=== PATIENT | female | born 1955 | race Caucasian/White ===

== ENCOUNTER 2017-07-18 11:20 | Emergency (ER) | payer OTHER ==
--- NOTE | 2017-07-18 12:12 | ED ---
General Adult HPI - General Chief complaint: Abdominal Pain Stated complaint: constipation x 1 month Time Seen by Provider: 07/18/17 11:25 Source: patient, RN notes reviewed Mode of arrival: ambulatory Limitations: no limitations - History of Present Illness Initial comments: This is a 62-year-old female presents emergency apartment stating that she is constipated. Patient states she's been intermittently constipated since . Patient states she's tried MiraLAX and some other [id number] laxatives with some enemas and her belly is still distended and she feels as though she is not going regularly. Patient states she doesn't have any specific area of pain. Patient denies any fever chills. Patient denies any nausea vomiting. Patient denies any history of liver disease. patient states she only drinks maybe 1 glass of wine a week. Patient denies any pain medicines. Patient states she has had a colectomy in the past secondary to diverticulitis. Patient denies any chest pain or palpitations or difficulty breathing. Patient denies any dysuria hematuria urinary frequency.patient states she went to [facility] they took an x-ray said they didn't see anything and sent her here. - Related Data Home Medications Medication Instructions Recorded Confirmed Citalopram Hydrobromide [CeleXA] 40 mg PO HS 07/18/17 07/18/17 Magnesium Oxide [Mag-Ox] 250 mg PO DAILY 07/18/17 07/18/17 Metoprolol Tartrate [Lopressor] 100 mg PO BID 07/18/17 07/18/17 Triamterene/Hydrochlorothiazid 0.5 tab PO DAILY 07/18/17 07/18/17 [Triamterene-Hctz 75-50 mg Tab] Allergies Allergy/AdvReac Type Severity Reaction Status Date / Time DEJA Inhibitors Allergy Swelling Verified 07/18/17 11:57 losartan [From Cozaar] Allergy Swelling Verified 07/18/17 11:57 Review of Systems ROS Statement: Those systems with pertinent positive or pertinent negative responses have been documented in the HPI. ROS Other: All systems not noted in ROS Statement are negative. Past Medical History Past Medical History: Hypertension History of Any Multi-Drug Resistant Organisms: None Reported Past Surgical History: Appendectomy, Hysterectomy, Tonsillectomy Additional Past Surgical History / Comment(s): colon resection, breast abscess Past Psychological History: Anxiety, Depression Smoking Status: Current every day smoker Past Alcohol Use History: None Reported Past Drug Use History: None Reported General Exam - General Exam Comments Initial Comments: GENERAL: Patient is well-developed and well-nourished. Patient is nontoxic and well- hydrated and is in mild distress. ENT: Neck is soft and supple. No significant lymphadenopathy is noted. Oropharynx is clear. Moist mucous membranes. Neck has full range of motion without eliciting any pain. EYES: The sclera were anicteric and conjunctiva were pink and moist. Extraocular movements were intact and pupils were equal round and reactive to light. Eyelids were unremarkable. PULMONARY: Unlabored respirations. Good breath sounds bilaterally. No audible rales rhonchi or wheezing was noted. CARDIOVASCULAR: There is a regular rate and rhythm without any murmurs gallops or rubs. ABDOMEN: abdomen is distended and appears to have some fluid in it. Patient has no area of specific tenderness. SKIN: Skin is clear with no lesions or rashes and otherwise unremarkable. NEUROLOGIC: Patient is alert and oriented x3. Cranial nerves II through XII are grossly intact. Motor and sensory are also intact. Normal speech, volume and content. Symmetrical smile. MUSCULOSKELETAL: Normal extremities with adequate strength and full range of motion. No lower extremity swelling or edema. No calf tenderness. LYMPHATICS: No significant lymphadenopathy is noted PSYCHIATRIC: Normal psychiatric evaluation. Normal interpersonal interactions appears functionally intact in deals appropriately with others. No signs of depression. No signs of anxiety. Limitations: no limitations Course Vital Signs 07/18/17 07/18/17 11:29 14:21 Temperature 97.9 F 97.9 F Pulse Rate 57 L 56 L Respiratory 16 20 Rate Blood Pressure 127/76 125/58 O2 Sat by Pulse 99 100 Oximetry Medical Decision Making - Medical Decision Making CAT scan showed no acute abnormality. - Lab Data Result diagrams: 07/18/17 12:24 07/18/17 12:24 Lab Results 07/18/17 07/18/17 07/18/17 Range/Units 12:24 12:24 12:24 WBC 8.3 (3.8-10.6) k/uL RBC 4.78 (3.80-5.40) m/uL Hgb 14.5 (11.4-16.0) gm/dL Hct 45.2 (34.0-46.0) % MCV 94.5 (80.0-100.0) fL MCH 30.2 (25.0-35.0) pg MCHC 32.0 (31.0-37.0) g/dL RDW 14.4 (11.5-15.5) % Plt Count 120 L (150-450) k/uL Neutrophils % 48 % Lymphocytes % 45 % Monocytes % 4 % Eosinophils % 1 % Basophils % 1 % Neutrophils # 4.0 (1.3-7.7) k/uL Lymphocytes # 3.7 (1.0-4.8) k/uL Monocytes # 0.3 (0-1.0) k/uL Eosinophils # 0.0 (0-0.7) k/uL Basophils # 0.0 (0-0.2) k/uL Sodium 138 (137-145) mmol/L Potassium 4.8 (3.5-5.1) mmol/L Chloride 101 (98-107) mmol/L Carbon Dioxide 23 (22-30) mmol/L Anion Gap 14 mmol/L BUN 11 (7-17) mg/dL Creatinine 0.73 (0.52-1.04) mg/dL Est GFR (MDRD) Af Amer >60 (>60 ml/min/1.73 sqM) Est GFR (MDRD) Non-Af >60 (>60 ml/min/1.73 sqM) Glucose 86 (74-99) mg/dL Calcium 9.9 (8.4-10.2) mg/dL Total Bilirubin 0.8 (0.2-1.3) mg/dL AST 45 H (14-36) U/L ALT 39 (9-52) U/L Alkaline Phosphatase 72 (38-126) U/L Total Protein 7.5 (6.3-8.2) g/dL Albumin 4.8 (3.5-5.0) g/dL Amylase 85 (30-110) U/L Lipase 230 (23-300) U/L Urine Color Yellow Urine Appearance Clear (Clear) Urine pH 6.0 (5.0-8.0) Ur Specific Round O 1.009 (1.001-1.035) Urine Protein Negative (Negative) Urine Glucose (UA) Negative (Negative) Urine Ketones Negative (Negative) Urine Blood Trace H (Negative) Urine Nitrite Negative (Negative) Urine Bilirubin Negative (Negative) Urine Urobilinogen <2.0 (<2.0) mg/dL Ur Leukocyte Esterase Negative (Negative) Urine RBC 2 (0-5) /hpf Urine WBC <1 (0-5) /hpf Ur Squamous Epith Cells 1 (0-4) /hpf Disposition Clinical Impression: Abdominal pain Disposition: HOME SELF-CARE Condition: Good Instructions: Abdominal Pain (ED) Referrals: Alysia Matthews MD [Primary Care Provider] - 1-2 days Time of Disposition: 14:29
[2017-07-18] MEDS ORDERED: RX INFO: IV CONTRAST WAS GIVEN 1 EACH MISC MISCELLANE PRN (12:35)
--- NOTE | 2017-07-18 12:40 | XR ---
EXAMINATION TYPE: XR KUB DATE OF EXAM: 07/18/2017 12:34 PM CLINICAL HISTORY: Abdominal pain per order. Constipation for one month. TECHNIQUE: Two Upright KUB images of the abdomen are obtained. COMPARISON: None. FINDINGS: Scattered gas is seen in non-distended small bowel loops. A few small bowel loops are sligh tly more prominent in the lower abdomen. Gas is seen in nondistended stomach. Gas and fecal material is seen in non-distended colon. There is no visceromegaly, pneumoperitoneum, or abnormal calcificatio n appreciated. Slight underlying scoliotic curvature is present. Lung bases are clear. IMPRESSION: Overall nonobstructive bowel gas pattern.
[2017-07-18 12:48] LABS: Basophils % (A) 1 %; Eosinophils % (A) 1 %; HCT 45.2 % (34.0-46.0); HGB 14.5 gm/dL (11.4-16.0); Lymphocytes # (A) 3.7 k/uL (1.0-4.8); Lymphocytes % (A) 45 %; MCH 30.2 pg (25.0-35.0); MCV 94.5 fL (80.0-100.0); Mean Platelet Volume 8.1; Monocytes # (A) 0.3 k/uL (0-1.0); Monocytes % (A) 4 %; Neutrophils % (A) 48 %; Platelet Count 120 k/uL (150-450); RBC 4.78 m/uL (3.80-5.40); RDW 14.4 % (11.5-15.5); WBC 8.3 k/uL (3.8-10.6)
[2017-07-18 12:57] LABS: Amylase 85 U/L (30-110); Anion Gap 14 mmol/L; Calcium 9.9 mg/dL (8.4-10.2); Carbon Dioxide 23 mmol/L (22-30); Chloride 101 mmol/L (98-107); Glucose 86 mg/dL (74-99); Lipase 230 U/L (23-300); Sodium 138 mmol/L (137-145); Total Bilirubin 0.8 mg/dL (0.2-1.3)
[2017-07-18 12:59] LABS: Appearance,Urine Clear (Clear); Bilirubin,Urine Negative (Negative); Blood Urea Nitrogen 11 mg/dL (7-17); Blood,Urine Trace (Negative); Color,Urine Yellow; Glucose,Urine (UA) Negative (Negative); Ketones,Urine Negative (Negative); Leukocyte Esterase,Urine Negative (Negative); Nitrite,Urine Negative (Negative); Potassium 4.8 mmol/L (3.5-5.1); Protein,Urine Negative (Negative); RBC,Urine 2 /hpf (0-5); Specific Gravity,Urine 1.009 (1.001-1.035); Squamous Epithelial Cell,Urine 1 /hpf (0-4); Total Protein 7.5 g/dL (6.3-8.2); Urobilinogen,Urine <2.0 mg/dL (<2.0); WBC,Urine <1 /hpf (0-5)
[2017-07-18 13:00] LABS: ALT 39 U/L (9-52); AST 45 U/L (14-36); Albumin 4.8 g/dL (3.5-5.0); Alkaline Phosphatase 72 U/L (38-126)
--- NOTE | 2017-07-18 14:15 | CT ---
EXAMINATION TYPE: CT abdomen pelvis w con DATE OF EXAM: 07/18/2017 HISTORY: constipation/bloating/pressure pain CT DLP: 1463mGycm Automated Exposure Control for Dose Reduction was Utilized. CONTRAST: CT scan of the abdomen and pelvis is performed without oral but with IV Contrast, patient injected wi th 100 mL of Omnipaque 300. COMPARISON: None. FINDINGS: LUNG BASES: No significant abnormality is appreciated. LIVER/GB: There are few subcentimeter hypodense lesions scattered throughout the liver that are too s mall to further characterize per presumed benign. PANCREAS: No significant abnormality is seen. SPLEEN: Spleen is mildly enlarged at 13.9 cm long axis coronal image 34. ADRENALS: There is nonspecific 1.6 cm left adrenal nodule axial image 17. Malignant etiology cannot b e excluded. Follow-up nonemergent adrenal protocol CT/MRI advised. KIDNEYS: No significant abnormality is seen. BOWEL: There is low lying cecum at the right pelvis. Terminal ileum is identified on coronal image 39 felt within normal limits. There is no suspicious small or large bowel dilatation. Evaluation of bow el is suboptimal secondary to lack of enteric contrast. Redundant sigmoid colon is present. UTERUS/ADNEXA: Uterus is surgically absent or markedly atrophic in appearance. There are scattered pe lvic phleboliths. LYMPH NODES: No greater than 1cm abdominal or pelvic lymph nodes are appreciated. OSSEOUS STRUCTURES: There is moderate multilevel spurring in visualized thoracic spine. There is mild to moderate disc space narrowing and spurring with vacuum disc phenomenon L5-S1 level. There is subc hondral cystic change and narrowing at pubic symphysis. There is prominent facet arthropathy in the m id to lower lumbar spine. OTHER: No significant additional abnormality is seen. IMPRESSION: No bowel obstruction is seen. No significant acute finding is seen to account for patient 's clinical symptoms. Nonemergent follow-up for left adrenal lesion advised
[2017-07-18 14:58] VITALS: BP 142/84; PULSE 60; RESP 17; TEMP 99.1
== END 2017-07-18 14:57 | disposition home or self-care (01) ==
LOC: EC 11:20
DX: R10.9 Unspecified abdominal pain (principal); I10 Essential (primary) hypertension; F32.9 Major depressive disorder, single episode, unspecified; F41.9 Anxiety disorder, unspecified; F17.200 Nicotine dependence, unspecified, uncomplicated; Z79.899 Other long term (current) drug therapy; Z88.8 Allergy status to other drugs, medicaments and biological substances; Z90.49 Acquired absence of other specified parts of digestive tract
CPT/HCPCS: 36415; 80053; 82150; 83690; 85025; 81001; 74018; 74177; 99284; Q9967

== ENCOUNTER 2017-08-16 10:01 | Day surgery (SDC) | payer OTHER ==
[2017-08-11 15:10] VITALS: BMI 29.9
[2017-08-16 10:26] VITALS: TEMP 99.4
[2017-08-16 10:30] LABS: Glucose,Whole Blood 83 mg/dL (75-99)
[2017-08-16] MEDS: LACTATED RINGERS 1,000 ML IV SCH ×2 (10:42→11:52)
[2017-08-16] MEDS ORDERED: LIDOCAINE 1% 20 ML VIAL (10MG/ML) FOR IV START INTRADERMA ONE (10:43)
[2017-08-16] MEDS ORDERED: MIDAZOLAM 2 MG/2 ML VIAL IV ONE (10:52)
[2017-08-16] MEDS ORDERED: PROPOFOL 10 MG/ML 20 ML VIAL IV ONE (11:54)
[2017-08-16 12:28] VITALS: RESP 20
[2017-08-16 12:56] VITALS: BP 131/71; PULSE 58
--- NOTE | 2017-08-16 14:57 | P.PCN ---
Date of Procedure: 08/16/17 Procedure(s) Performed: Procedure: Colonoscopy and biopsy. Preoperative diagnosis: Abdominal bloating and change in bowel habits. Postoperative diagnosis: Diminutive polyp, distal sigmoid biopsied, otherwise, exam to the terminal ileum within normal limits. Preparation: HalfLytely prep. Sedation: Was provided by anesthesia. Brief clinical history: The patient is a 62-year-old female who is scheduled for this evaluation because of constipation and abdominal bloating which she has been experiencing for some time. She had segmental bowel resection more than 15 years ago. This would be her first colonoscopy since that time. Procedure: With the patient on her left lateral decubitus position and after informed consent and adequate sedation, the perianal area was inspected and it did not show any fissures or fistulas. There were no masses felt on digital rectal examination. The Olympus CFQ 160L video colonoscope was then inserted in the rectum in the usual fashion and advanced to the cecum. I then intubated the ileocecal valve and examined the terminal ileum. Terminal ileum and colon appeared healthy with no edema, erythema, friability, ulceration, exudation or spontaneous bleeding. There was a diminutive polyp in the distal sigmoid which was biopsied but there were no large polyps or cancer or any obvious diverticular disease or other pathology. I retroflexed the endoscope in the rectum before the endoscope was withdrawn. The patient tolerated the procedure well. Plan: The patient was reassured. Will await biopsy results. She will follow- up with you as planned and further plans based on her course and biopsy results. I recommended repeat colonoscopy in 5-10 years depending on the pathology results.
== END 2017-08-16 13:18 | disposition home or self-care (01) ==
LOC: ORWHC2ENDO 10:01
DX: D12.5 Benign neoplasm of sigmoid colon (principal); R14.0 Abdominal distension (gaseous); Z90.49 Acquired absence of other specified parts of digestive tract; J44.9 Chronic obstructive pulmonary disease, unspecified; K21.9 Gastro-esophageal reflux disease without esophagitis; I10 Essential (primary) hypertension; M19.90 Unspecified osteoarthritis, unspecified site; E16.2 Hypoglycemia, unspecified; F41.9 Anxiety disorder, unspecified; Z88.8 Allergy status to other drugs, medicaments and biological substances; Z91.048 Other nonmedicinal substance allergy status; F17.210 Nicotine dependence, cigarettes, uncomplicated; Z79.899 Other long term (current) drug therapy
CPT/HCPCS: 88305; 45380; J2250; J2704

== ENCOUNTER → 2017-08-19 | Outpatient (CLI) | payer OTHER ==
--- NOTE | 2017-08-19 13:56 | MR ---
EXAMINATION TYPE: MR abdomen wo/w con DATE OF EXAM: 08/19/[address] abdomen pelvis July 18, 2017 HISTORY: Left Adrenal Mass CONTRAST: Standard multiplanar, multisequence MRI departmental protocol utilizing 8 mL intravenous Gadavist maxwell olinium contrast. Exam was performed on the abdomen focusing on adrenal glands. FINDINGS: Adrenal glands: There is redemonstration of 1.7 x 1.2 cm left adrenal mass. There is diffuse signal d ropout on in and out of phase sequence imaging. Findings are consistent with benign lipid rich adenom a. Slight nodular thickening of both adrenal glands is present consistent with benign lipid rich hype rplasia as there is diffuse signal dropout. Other: Lung bases are clear. Gallbladder is somewhat contracted. A few tiny cysts are scattered throu ghout the visualized liver. Spleen is upper limits of normal in size. Pancreas is normal in size. The re are no concerning renal masses or hydronephrosis seen bilaterally. No suspicious bowel dilatation is present. No concerning abdominal ascites is identified. IMPRESSION: The 1.7 cm left adrenal mass has MRI imaging characteristics consistent with benign lipid rich adenoma.
== END | disposition home or self-care (01) ==
LOC: RADMRIMAIN 12:13
PROVIDERS: ATTEND Family Medicine
DX: E27.8 Other specified disorders of adrenal gland (principal)
CPT/HCPCS: 74183; A9581

== ENCOUNTER → 2017-09-01 | Outpatient (CLI) | payer OTHER ==
--- NOTE | 2017-09-07 10:01 | MM ---
Reason for exam: screening (asymptomatic). Last mammogram was performed 2 years and 5 months ago. Physical Findings: A clinical breast exam by your physician is recommended on an annual basis and results should be correlated with mammographic findings. MG Screening Mammo w CAD Bilateral CC and MLO view(s) were taken. Prior study comparison: April 04, 2015, mammogram, performed at [facility]. March 21, 2015, mammogram, performed at [facility]. The breast tissue is heterogeneously dense. This may lower the sensitivity of mammography. There is no discrete abnormality. ASSESSMENT: Negative, BI-RAD 1 RECOMMENDATION: Routine screening mammogram of both breasts in 1 year.
== END | disposition home or self-care (01) ==
LOC: RADMAMWWP 13:44
PROVIDERS: ATTEND Family Medicine
DX: Z12.31 Encounter for screening mammogram for malignant neoplasm of breast (principal)
CPT/HCPCS: 77067

== ENCOUNTER 2019-11-25 08:29 | Emergency (ER) | payer MEDICARE ==
[2019-11-25 08:36] VITALS: BP 164/96; PULSE 49; RESP 18; TEMP 98.6
[2019-11-25] MEDS ORDERED: DOXYCYCLINE 100 MG CAP PO STA (09:05)
--- NOTE | 2019-11-25 09:13 | ED ---
Skin/Abscess/FB HPI - General Chief complaint: Skin/Abscess/Foreign Body Stated complaint: ticks legs, feetn and groin Time Seen by Provider: 11/25/19 08:36 Source: patient, RN notes reviewed, old records reviewed Mode of arrival: ambulatory Limitations: language barrier - History of Present Illness Initial comments: Patient is a 64-year-old female who presents emergency department today for evaluation with chief complaint of concern for tick bites over her legs and groin area. Patient reports she was out working in the yard yesterday. She reports that she came home in the evening and noticed that she had 2 areas of concern for tick bite over the left foot and the right posterior knee. She reports that she picked is off with her fingers. Patient states that she minimally tender groin and noticed some areas of black spots and is concerned that those may be ticks. She denies any fevers or chills or target-like rashes. She denies any other history. - Related Data Home Medications Medication Instructions Recorded Confirmed Citalopram Hydrobromide [CeleXA] 40 mg PO HS 07/18/17 08/16/17 Magnesium Oxide [Mag-Ox] 250 mg PO DAILY 07/18/17 08/16/17 Metoprolol Tartrate [Lopressor] 100 mg PO BID 07/18/17 08/16/17 Triamterene/Hydrochlorothiazid 0.5 tab PO DAILY 07/18/17 08/16/17 [Triamterene-Hctz 75-50 mg Tab] Magnesium Tab 162 mg PO BID 08/11/17 08/16/17 Omeprazole [PriLOSEC] 20 mg PO AC-BRKFST 08/11/17 08/16/17 Oxybutynin Chloride [Ditropan] 5 mg PO HS 08/11/17 08/16/17 Allergies Allergy/AdvReac Type Severity Reaction Status Date / Time DEJA Inhibitors Allergy Swelling Verified 11/25/19 08:36 adhesive tape Allergy Itching Verified 11/25/19 08:36 losartan [From Cozaar] Allergy Swelling Verified 11/25/19 08:36 Review of Systems ROS Statement: Those systems with pertinent positive or pertinent negative responses have been documented in the HPI. ROS Other: All systems not noted in ROS Statement are negative. Past Medical History Past Medical History: COPD, GERD/Reflux, Hypertension, Osteoarthritis (OA) Additional Past Medical History / Comment(s): constipation, hypoglycemia, urinary leakage, hx diverticulitis History of Any Multi-Drug Resistant Organisms: None Reported Past Surgical History: Appendectomy, Bowel Resection, Hysterectomy, Tonsillecto my Additional Past Surgical History / Comment(s): colon resection, surgery on left breast for abscess x 2 Past Anesthesia/Blood Transfusion Reactions: Motion Sickness Past Psychological History: Depression Smoking Status: Current every day smoker Past Alcohol Use History: Occasional Past Drug Use History: Marijuana - Past Family History Father Family Medical History: Cancer General Exam - General Exam Comments Initial Comments: 64 -year-old female. No distress. Limitations: language barrier General appearance: alert, in no apparent distress Head exam: Present: atraumatic, normocephalic, normal inspection Eye exam: Present: normal appearance, PERRL, EOMI. Absent: scleral icterus, conjunctival injection, periorbital swelling ENT exam: Present: normal exam, mucous membranes moist Neck exam: Present: normal inspection. Absent: tenderness, meningismus, lymphadenopathy Respiratory exam: Present: normal lung sounds bilaterally. Absent: respiratory distress, wheezes, rales, rhonchi, stridor Cardiovascular Exam: Present: regular rate, normal rhythm, normal heart sounds. Absent: systolic murmur, diastolic murmur, rubs, gallop, clicks GI/Abdominal exam: Present: soft, normal bowel sounds. Absent: distended, tenderness, guarding, rebound, rigid Extremities exam: Present: normal inspection, full ROM, normal capillary refill, other (Patient has excoriation of the right posterior knee with a small puncture wound likely from concern for tick bite this removed. She has a similar appearance on the left foot.). Absent: tenderness, pedal edema, joint swelling, calf tenderness Back exam: Present: normal inspection Neurological exam: Present: alert, oriented X3, CN II-XII intact Psychiatric exam: Present: normal affect, normal mood Skin exam: Present: warm, dry, intact, normal color, other (Patient's area of concern for ticks and groin are actually clogged pores and blackheads within the groin.). Absent: rash Course Vital Signs 11/25/19 08:33 Temperature 98.6 F Pulse Rate 49 L Respiratory 18 Rate Blood Pressure 164/96 O2 Sat by Pulse 100 Oximetry Medical Decision Making - Medical Decision Making 64-year-old female presents emergency from today for concern for multiple tick bites. Patient reports she removed to him one from her left foot with right knee. Patient was also concerned that she may have some in her groin. On examination she has no ticks on her scan and thoroughly checked patient's hair. There is she was concerned or tick in her groin are actually clogged pores and blackheads and the groin. I discussed that if she is remove the 2 from her leg and foot to treat with a one-time dose of doxycycline. Given this in the emergency department. Advised following up with primary care doctor. Disposition Clinical Impression: Tick bite Disposition: HOME SELF-CARE Condition: Good Instructions (If sedation given, give patient instructions): Tick Bite (ED) Additional Instructions: Please use medication as discussed. Please follow up with family doctor if symptoms have not improved over the next two days. Please return to the emergency room if your symptoms increase or worsen or for any other concerns. Is patient prescribed a controlled substance at d/c from ED?: No Referrals: Delma Vargas MD [Primary Care Provider] - 1-2 days Time of Disposition: 09:12
== END 2019-11-25 09:24 | disposition home or self-care (01) ==
LOC: EC 08:29
DX: S90.862A Insect bite (nonvenomous), left foot, initial encounter (principal); S90.861A Insect bite (nonvenomous), right foot, initial encounter; S80.261A Insect bite (nonvenomous), right knee, initial encounter; F32.9 Major depressive disorder, single episode, unspecified; I10 Essential (primary) hypertension; K21.9 Gastro-esophageal reflux disease without esophagitis; N39.8 Other specified disorders of urinary system; Z79.899 Other long term (current) drug therapy; F17.200 Nicotine dependence, unspecified, uncomplicated; Z88.8 Allergy status to other drugs, medicaments and biological substances; Z91.048 Other nonmedicinal substance allergy status; W57.XXXA Bitten or stung by nonvenomous insect and other nonvenomous arthropods, initial encounter; Y93.89 Activity, other specified; Y92.096 Garden or yard of other non-institutional residence as the place of occurrence of the external cause
CPT/HCPCS: 99283

== ENCOUNTER → 2021-02-02 | Outpatient (CLI) | payer MEDICARE ==
--- NOTE | 2021-02-02 15:59 | XR ---
EXAMINATION TYPE: XR Hip Bilateral Complete DATE OF EXAM: 02/02/2021 COMPARISON: NONE HISTORY: Pain TECHNIQUE: 2 views of each hip is submitted FINDINGS: Right hip: Moderate to severe concentric narrowing of the joint space with hypertrophic spurring. No acute fracture or dislocation. Left hip: Mild to moderate concentric narrowing the joint space trophic spurring along the greater tr ochanter. No acute fracture or dislocation. IMPRESSION: Bilateral hip arthropathy.
--- NOTE | 2021-02-02 16:01 | XR ---
EXAM TYPE: LUMBAR SPINE X RAY SERIES COMPARISON: NONE HISTORY: Pain TECHNIQUE: 4 views are submitted. FINDINGS: Alignment is anatomic. The pedicles are intact. The transverse processes are intact. Diffuse osteop enia with hypertrophic and degenerative changes. Multilevel facet arthropathy. Vascular calcification s noted. IMPRESSION: 1. Multilevel moderate degenerative disc disease with severe facet arthropathy involving the lower bird mbar spine and suspected foraminal encroachment. 2. Diffuse osteopenia.
== END | disposition home or self-care (01) ==
LOC: RADXRMAIN 15:18
PROVIDERS: ATTEND Family Medicine
DX: M51.36 Other intervertebral disc degeneration, lumbar region (principal); M12.88 Other specific arthropathies, not elsewhere classified, other specified site; M12.9 Arthropathy, unspecified
CPT/HCPCS: 72110; 73521

== ENCOUNTER → 2021-06-16 | Outpatient (CLI) | payer MEDICARE ==
[2021-06-16 13:57] LABS: Basophils # (A) 0.1 k/uL (0-0.2); Basophils % (A) 0 %; Eosinophils # (A) 0.1 k/uL (0-0.7); Eosinophils % (A) 1 %; HCT 43.1 % (34.0-46.0); HGB 13.9 gm/dL (11.4-16.0); Lymphocytes # (A) 9.8 k/uL (1.0-4.8); Lymphocytes % (A) 57 %; MCH 30.8 pg (25.0-35.0); MCHC 32.3 g/dL (31.0-37.0); MCV 95.4 fL (80.0-100.0); Mean Platelet Volume 7.6; Monocytes # (A) 0.3 k/uL (0-1.0); Monocytes % (A) 2 %; Neutrophils # (A) 6.4 k/uL (1.3-7.7); Neutrophils % (A) 37 %; Platelet Count 198 k/uL (150-450); RBC 4.52 m/uL (3.80-5.40); RDW 13.6 % (11.5-15.5); WBC 17.1 k/uL (3.8-10.6)
[2021-06-16 14:25] LABS: Prothrombin Time 10.4 sec (9.0-12.0)
[2021-06-16 16:09] LABS: Poikilocytosis (M) Present
== END | disposition home or self-care (01) ==
LOC: LABPAT 13:12
PROVIDERS: ATTEND Orthopaedic Surgery
DX: Z01.812 Encounter for preprocedural laboratory examination (principal); M16.11 Unilateral primary osteoarthritis, right hip
CPT/HCPCS: 36415; 80051; 85025; 85610; 87070

== ENCOUNTER 2021-06-22 09:05 | Day surgery (SDC) | payer MEDICARE ==
[2021-06-17 11:06] VITALS: BMI 33.3
--- NOTE | 2021-06-21 11:29 | HP ---
HISTORY AND PHYSICAL DATE OF SURGERY: 06/22/2021 Estella Feliz is a 66-year-old patient seen with symptomatic right hip osteoarthritis. After treatment options were discussed with her, she elected to proceed with right total hip arthroplasty. Consent was obtained. Clearance was provided by Dr. Vargas. PAST MEDICAL HISTORY: Hypertension, leukemia, CLL. PAST SURGICAL HISTORY: Appendectomy, hysterectomy, tonsillectomy. DAILY MEDICATIONS: Omeprazole, [place], Celexa, metoprolol, oxybutynin. ALLERGIES: COZAAR. SOCIAL HISTORY: She denies tobacco use. PHYSICAL EVALUATION OF THE RIGHT HIP: There is diffuse tenderness. Limited range of motion. Severe pain. Positive hip impingement sign. Straight-leg raise negative. Distal neurovascular exam is intact. Radiographs of the right hip reveal severe osteoarthritic changes. IMPRESSION: 1. Right hip osteoarthritis. 2. Hypertension. 3. Leukemia. PLAN: Direct anterior right total hip arthroplasty. MMODL / IJN: [id number] /
[~2021-06-22 09:05] MED LIST: ACETAMINOPHEN TAB 500 MG TAB PO PRN; DEXAMETHASONE SOD PHOSPHATE 4 MG/ML 1 ML VIAL IV ONE; HYDROmorphone 0.5 MG/0.5 ML SYRINGE IVP PRN; MELOXICAM 7.5 MG TAB PO PRN; ONDANSETRON 4 MG/2 ML VIAL IVP ONE; ROPIVACAINE/EPI/CLONIDINE/KET 50 ML SYRINGE MISCELLANE PRN; TRANEXAMIC ACID 1,000 MG in SODIUM CHLORIDE 0.9% 100 ML IVPB PRN
[2021-06-22] MEDS: LACTATED RINGERS 1,000 ML IV SCH ×2 (09:53→13:55)
[2021-06-22] MEDS ORDERED: LIDOCAINE 1% (10MG/ML) FOR IV START INTRADERMA ONE (09:54)
[2021-06-22] MEDS ORDERED: GLYCOPYRROLATE 0.2 MG/ML 2 ML VIAL ONE (09:55)
[2021-06-22] MEDS ORDERED: HYDROmorphone (PF) 1 MG/ML ONE (09:55)
[2021-06-22] MEDS ORDERED: NEOSTIGMINE 1 MG/ML 10 ML VIAL ONE (09:55)
[2021-06-22] MEDS ORDERED: fentaNYL (PF) 50 MCG/ML 2 ML AMP ONE (09:55)
[2021-06-22] MEDS ORDERED: WATER FOR INJECTION, STERILE 10 ML VIAL IV ONE (09:55)
[2021-06-22] MEDS ORDERED: MIDAZOLAM 2 MG/2 ML VIAL ONE (09:55)
[2021-06-22] MEDS ORDERED: SUCCINYLCHOLINE CHLORIDE 100 MG/5 ML SYR IV ONE (09:55)
[2021-06-22] MEDS ORDERED: SODIUM CHLORIDE 0.9% 100 ML BAG ONE (09:55)
[2021-06-22] MEDS ORDERED: ePHEDrine 50 MG/ML 1 ML AMP ONE (09:55)
[2021-06-22] MEDS ORDERED: PROPOFOL 10 MG/ML 20 ML VIAL IV ONE (09:55)
[2021-06-22] MEDS ORDERED: ROCURONIUM 10 MG/ML (5 ML VIAL) IV ONE (09:55)
[2021-06-22] MEDS ORDERED: LIDOCAINE 1% INJ 10MG/ML (20 ML MDV) ONE (09:55)
[2021-06-22] MEDS ORDERED: TRANEXAMIC ACID 1,000 MG/10 ML VIAL ONE (09:55)
[2021-06-22] MEDS ORDERED: ONDANSETRON 4 MG/2 ML VIAL ONE (09:55)
[2021-06-22] MEDS ORDERED: ceFAZolin 1,000 MG in SODIUM CHLORIDE 0.9% 1,000 ML IRRIGATION ONE (10:32)
--- NOTE | 2021-06-22 11:42 | P.OP ---
Date of Procedure: 06/22/21 Preoperative Diagnosis: Right hip osteoarthritis Postoperative Diagnosis: Right hip osteoarthritis Procedure(s) Performed: Direct anterior right total hip arthroplasty Implants: 1. Depuy Corail size 11 KA with collar press-fit femoral stem 2. Depuy Alexander 52 mm press-fit acetabular shell 3. Depuy pinnacle neutral polyethylene acetabular liner 52 mm OD 36 mm ID 4. Biolox delta ceramic femoral head +5 36 mm Anesthesia: PASHAA, local Surgeon: Delio Remy Toys Inspector #1: Oscar Hughes Estimated Blood Loss (ml): 185 Pathology: other (Femoral head) Condition: stable Disposition: PACU Indications for Procedure: 66-year-old patient seen with symptomatic right hip osteoarthritis. After treatment options were discussed, she elected to proceed with direct anterior right total hip arthroplasty. Operative Findings: See description of procedure Description of Procedure: The patient was taken to the operative suite. Patient underwent a general anesthetic by the department of anesthesia. Patient was then transferred to the [facility] table. Patient was given preoperative IV antibiotics and TXA. Both lower extremities were placed in standard leg spars. The hip was then prepped and draped in the normal sterile orthopedic fashion. A standard anterior incision was made beginning 3 cm lateral and 1 cm distal to the ASIS extending 10 cm. Dissection was then carried down through the subcutaneous soft tissues down to the fascia overlying the tensor fascia jean. An incision was now made through the fascia. Careful dissection was taken down exposing the tensor fascia jean muscle. A Cobra retractor was now placed along the medial femoral neck and a second one along the lateral femoral neck. The venous circumflex vessels were now identified, cauterized and clipped. We identified the anterior hip capsule. An incision was made through the hip capsule along the lateral border. I performed a partial anterior capsulectomy. Retractors were now placed around the femoral neck itself. A femoral neck cut was now made with a sagittal saw. It was completed with an osteotome at the lateral neck area. The femoral head was now removed without difficulty. The extremity was now rotated to 60 of external rotation. It was locked in position. Residual labrum was now debrided out. Serial reaming was performed of the acetabulum while Yung ellis holding an anterior retractor for exposure. Once we reached the appropriate size and a trial was position and fit nicely. The appropriate size was now chosen opened and made available. It was introduced into the acetabulum without difficulty. The C-arm/fluoroscopy was now brought into the operative field. We made sure we had a true AP pelvic view. We now under direct C-arm/fluoroscopy introduced into the acetabular component with appropriate version and inclination. I held the cup in appropriate position well Yung CUEVA used a mallet to seat the acetabular component. I noted the component now to be well seated and stable. Acetabular cup introduce her was removed. The C-arm was pulled back. An appropriate liner was introduced and clicked into position. It was felt to be stable. At this point retractors were removed. The extremity was now placed into 140 external rotation with no traction. The leg was now dropped to the ground and adducted. Appropriate retractors were now positioned along the proximal femur. We also placed our femoral look into position. Additional capsular releasing was performed to gain access to the proximal femur. We now used a box osteotome. A canal finder was now utilized. Serial broaching was now performed with the assistance of Yung CUEVA tapping the broaches down with a mallet while held the broach in appropriate rotation and position. This was done until we reached the appropriate size with good overall rotational stability. Appropriate calcar planing was performed. A trial head/neck was placed into position. The hip was now reduced. The C- arm/fluoroscopy was brought back into the operative field. I obtained an AP pelvis demonstrating adequate leg length alignment and adequate positioning and sizing of the trial components. The C-arm/fluoroscopy was pulled back. Retractors were repositioned and the hip was dislocated. The leg was again taken down to the ground and adducted. Appropriate retractors were repositioned as well as the femoral hook. All trial components were removed. The femoral implant was opened along with the femoral head. The femoral implant was introduced on the appropriate handle into our pre-broached area. I held the component position well Yung CUEVA used a mallet to seat the femoral component. The femoral component was now noted to be well seated and stable.. The femoral head was introduced with good positioning and fixation noted. Retractors were now removed. The hip was now reduced. There appeared be good positioning of the hip confirmed on intraoperative fluoroscopy. Spot films were obtained to document this. A second gram of TXA was given. The deep and superficial soft tissues were infiltrated with local analgesic. Bipolar cautery had been utilized intermittently through the procedure for hemostasis. The wound was irrigated copiously with pulse lavage mechanical irrigation. The fascia was repaired with Vicryl suture. The subcutaneous soft tissues were repaired in layers with Vicryl suture. The skin was approximated with pernio/Dermabond. Sterile dressings were applied. Patient was then awakened, transferred to a bed and taken to recovery in stable condition. Yung CUEVA assisted with the complex procedure.
[2021-06-22] MEDS ORDERED: HYDROmorphone 1 MG/ML 1 ML SYRINGE IVP PRN (11:43)
[2021-06-22] MEDS ORDERED: HYDROmorphone 0.2 MG/1 ML SYRINGE IVP PRN (11:43)
[2021-06-22] MEDS ORDERED: HYDROmorphone 0.5 MG/0.5 ML SYRINGE IVP PRN (11:43)
[2021-06-22] MEDS ORDERED: HYDROcodone/APAP 7.5-325MG 1 EACH TAB PO PRN (11:43)
[2021-06-22] MEDS ORDERED: ONDANSETRON 4 MG/2 ML VIAL IVP PRN (11:43)
[2021-06-22] MEDS ORDERED: NALOXONE 0.4 MG/ML 1 ML VIAL IV PRN (11:43)
[2021-06-22] MEDS ORDERED: HYDROcodone/APAP 5-325MG 1 EACH TAB PO PRN (11:43)
[2021-06-22] MEDS ORDERED: LACTATED RINGERS 1,000 ML IV ONE (11:43)
--- NOTE | 2021-06-22 11:59 | FL ---
Fluoroscopy HISTORY: Hip replacement 16 seconds fluoroscopy time supplied to the referring clinician. 3 intraoperative C-arm images docum ent the procedure. See dictated report from orthopedic surgery.
[2021-06-22 12:17] VITALS: TEMP 97
[2021-06-22 12:27] VITALS: RESP 16
[2021-06-22] MEDS ORDERED: HYDROcodone/APAP 5-325MG 1 EACH TAB PO ONE (14:15)
[2021-06-22 16:09] VITALS: BP 111/74; PULSE 78
== END 2021-06-22 16:28 | disposition home or self-care (01) ==
LOC: OR 09:05
PROVIDERS: ATTEND Orthopaedic Surgery
DX: M16.11 Unilateral primary osteoarthritis, right hip (principal); I10 Essential (primary) hypertension; C91.10 Chronic lymphocytic leukemia of B-cell type not having achieved remission; Z20.822 Contact with and (suspected) exposure to COVID-19
CPT/HCPCS: 27130; 97110; 97161; 86900; 86901; 86850; 88300; 87635; 73501; C1776; J1100; J0690 ×2; J2405

== ENCOUNTER → 2021-09-04 | Outpatient (CLI) | payer MEDICARE | END | disposition home or self-care (01) | LOC: LABPAT 11:08 | PROVIDERS: ATTEND Orthopaedic Surgery | DX: Z53.9 Procedure and treatment not carried out, unspecified reason (principal) ==

== ENCOUNTER 2021-09-14 06:32 | Day surgery (SDC) | payer MEDICARE ==
[2021-09-04 15:48] VITALS: BMI 31.6
[2021-09-07 07:02] LABS: Anion Gap 13.2 mmol/L (10.00-18.00); Carbon Dioxide 23.8 mmol/L (20.0-27.5); HCT 42.4 % (37.2-46.3); INR 0.93 (0.90-1.11); MCHC 30.7 g/dL (32.0-37.0); MCV 91.2 fL (80.0-97.0); Mean Platelet Volume 10.6 fL (9.5-12.2); NRBC Per 100 WBC 0 /100 WBCS (0.0-0.0); Neutrophils # (M) 2.24 X 10*3/uL (2.00-8.90); Platelet Count 201 X 10*3/uL (140-440); Potassium 4.3 mmol/L (3.5-5.5); Prothrombin Time 10.5 sec (9.9-11.9); RBC 4.65 X 10*6/uL (4.10-5.20); RDW 13.8 % (11.5-14.5); Smudge Cells PRESENT; WBC 13.15 X 10*3/uL (4.50-10.00)
--- NOTE | 2021-09-13 12:46 | HP ---
HISTORY AND PHYSICAL DATE OF SURGERY: 09/14/2021 Estella Feliz is a 66-year-old patient seen with symptomatic left hip osteoarthritis. Options for treatment were discussed with her. She elected to proceed with direct anterior left total hip arthroplasty. Consent was obtained. PAST MEDICAL HISTORY: Hypertension. PAST SURGICAL HISTORY: Tonsillectomy, hysterectomy, appendectomy. DAILY MEDICATIONS: Omeprazole, metoprolol, ibuprofen. ALLERGIES: DEJA INHIBITORS AND COZAAR. SOCIAL HISTORY: She denies tobacco use. PHYSICAL EVALUATION OF THE LEFT HIP: She has limited range of motion with severe pain. Positive hip impingement sign. Straight-leg raise is negative. Distal neurovascular exam is intact. Radiographs of the left hip reveal severe osteoarthritic changes. IMPRESSION: 1. Left hip osteoarthritis. 2. Hypertension. 3. Gastroesophageal reflux disease. PLAN: Direct anterior left total hip arthroplasty. MMODL / IJN: [id number] /
[~2021-09-14 06:32] MED LIST changes: -HYDROmorphone 0.5 MG/0.5 ML SYRINGE IVP PRN; +LACTATED RINGERS 1,000 ML IV SCH; +MIDAZOLAM 2 MG/2 ML VIAL IV PRN; -ROPIVACAINE/EPI/CLONIDINE/KET 50 ML SYRINGE MISCELLANE PRN; +SCOPOLAMINE 1.5MG/72HR PATCH TRANSDERM ONE; -TRANEXAMIC ACID 1,000 MG in SODIUM CHLORIDE 0.9% 100 ML IVPB PRN; +TRANEXAMIC ACID IN NACL,ISO-OS 1,000 MG in SALINE 1 100ML.BAG IVPB PRN
[2021-09-14] MEDS ORDERED: LIDOCAINE 1% (10MG/ML) FOR IV START INTRADERMA ONE (07:14)
[2021-09-14 07:28] LABS: Glucose,Whole Blood 97 mg/dL (75-99)
[2021-09-14] MEDS ORDERED: MIDAZOLAM 2 MG/2 ML VIAL ONE (07:34)
[2021-09-14] MEDS ORDERED: fentaNYL (PF) 50 MCG/ML 2 ML AMP ONE (07:34)
[2021-09-14] MEDS ORDERED: TRANEXAMIC ACID IN NACL,ISO-OS 1,000 MG/100 ML BAG ONE (07:34)
[2021-09-14] MEDS ORDERED: NEOSTIGMINE 1 MG/ML 10 ML VIAL ONE (07:34)
[2021-09-14] MEDS ORDERED: SUCCINYLCHOLINE CHLORIDE 100 MG/5 ML SYR IV ONE (07:34)
[2021-09-14] MEDS ORDERED: BUPIVACAINE (PF) 0.5% 30 ML VIAL SQ ONE (07:34)
[2021-09-14] MEDS ORDERED: ROCURONIUM 10 MG/ML (5 ML VIAL) IV ONE (07:34)
[2021-09-14] MEDS ORDERED: PROPOFOL 10 MG/ML 20 ML VIAL IV ONE (07:34)
[2021-09-14] MEDS ORDERED: ePHEDrine 50 MG/ML 1 ML VIAL ONE (07:34)
[2021-09-14] MEDS ORDERED: GLYCOPYRROLATE 0.2 MG/ML 2 ML VIAL ONE (07:34)
[2021-09-14] MEDS ORDERED: LIDOCAINE 1% INJ 10MG/ML (20 ML MDV) ONE (07:34)
[2021-09-14] MEDS ORDERED: ceFAZolin 1,000 MG in SODIUM CHLORIDE 0.9% 1,000 ML IRRIGATION ONE (07:50)
[2021-09-14] MEDS ORDERED: HYDROcodone/APAP 5-325MG 1 EACH TAB PO PRN (08:18)
[2021-09-14] MEDS ORDERED: NALOXONE 0.4 MG/ML 1 ML VIAL IV PRN (08:18)
[2021-09-14] MEDS ORDERED: HYDROmorphone 0.5 MG/0.5 ML SYRINGE IVP PRN (08:18)
[2021-09-14] MEDS ORDERED: HYDROcodone/APAP 7.5-325MG 1 EACH TAB PO PRN (08:18)
--- NOTE | 2021-09-14 09:03 | P.OP ---
Date of Procedure: 09/14/21 Preoperative Diagnosis: Left hip osteoarthritis Postoperative Diagnosis: Left hip osteoarthritis Procedure(s) Performed: Direct anterior left total hip arthroplasty Implants: 1. Depuy Corail standard collar size 12 press-fit femoral stem 2. Depuy [place] 52 mm press-fit acetabular shell 3. Depuy [place] neutral polyethylene acetabular liner 36 mm ID 52 mm OD 4. Biolox Delta ceramic femoral head +1.5 36 mm Anesthesia: PASHAA, local Surgeon: Delio Remy Welt Drawer #1: Oscar Hughes Estimated Blood Loss (ml): 95 Pathology: other (Femoral head) Condition: stable Disposition: PACU Indications for Procedure: 66-year-old patient seen with symptomatic left hip osteoarthritis. After treatment options were discussed, she elected to proceed with direct anterior left total hip arthroplasty Operative Findings: See description of procedure Description of Procedure: The patient was taken to the operative suite. Patient underwent a general anesthetic by the department of anesthesia. Patient was then transferred to the [place] table. Patient was given preoperative IV antibiotics and TXA. Both lower extremities were placed in standard leg spars. The hip was then prepped and draped in the normal sterile orthopedic fashion. A standard anterior incision was made beginning 3 cm lateral and 1 cm distal to the ASIS extending 10 cm. Dissection was then carried down through the subcutaneous soft tissues down to the fascia overlying the tensor fascia jean. An incision was now made through the fascia. Careful dissection was taken down exposing the tensor fascia jean muscle. A Cobra retractor was now placed along the medial femoral neck and a second one along the lateral femoral neck. The venous circumflex vessels were now identified, cauterized and clipped. We identified the anterior hip capsule. An incision was made through the hip capsule along the lateral border. I performed a partial anterior capsulectomy. Retractors were now placed around the femoral neck itself. A femoral neck cut was now made with a sagittal saw. It was completed with an osteotome at the lateral neck area. The femoral head was now removed without difficulty. The extremity was now rotated to 60 of external rotation. It was locked in position. Residual labrum was now debrided out. Serial reaming was performed of the acetabulum while Yung CUEVA assisted holding an anterior retractor for exposure. Once we reached the appropriate size and a trial was position and fit nicely. The appropriate size was now chosen opened and made available. It was introduced into the acetabulum without difficulty. The C-arm/fluoroscopy was now brought into the operative field. We made sure we had a true AP pelvic view. We now under direct C- arm/fluoroscopy introduced into the acetabular component with appropriate version and inclination. I held the cup in appropriate position well Yung CUEVA used a mallet to seat the acetabular component. I noted the component now to be well seated and stable. Acetabular cup introduce her was removed. The C-arm was pulled back. An appropriate liner was introduced and clicked into position. It was felt to be stable. At this point retractors were removed. The extremity was now placed into 120 external rotation with no traction. The leg was now dropped to the ground and adducted. Appropriate retractors were now positioned along the proximal femur. We also placed our femoral look into position. Additional capsular releasing was performed to gain access to the proximal femur. We now used a box osteotome. A canal finder was now utilized. Serial broaching was now performed with the assistance of Yung CUEVA tapping the broaches down with a mallet while held the broach in appropriate rotation an d position. This was done until we reached the appropriate size with good overall rotational stability. Appropriate calcar planing was performed. A trial head/neck was placed into position. The hip was now reduced. The C- arm/fluoroscopy was brought back into the operative field. I obtained an AP pelvis demonstrating adequate leg length alignment. I reviewed the trial components and they appeared to be appropriately sized and positioned. The C- arm/fluoroscopy was pulled back. Retractors were repositioned and the hip was dislocated. The leg was again taken down to the ground and adducted. Appropriate retractors were repositioned as well as the femoral hook. All trial components were removed. The femoral implant was opened along with the femoral head. The femoral implant was introduced on the appropriate handle into our pre-broached area. I held the component position well Yung CUEVA used a mallet to seat the femoral component. The femoral component was now noted to be well seated and stable.. The femoral head was introduced with good positioning and fixation noted. Retractors were now removed. The hip was now reduced. There appeared be good positioning of the hip confirmed on intraoperative fluoroscopy. Spot films were obtained to document this. A second gram of TXA was given. The deep and superficial soft tissues were infiltrated with local analgesic. Bipolar cautery had been utilized intermittently through the procedure for hemostasis. The wound was irrigated copiously with pulse lavage mechanical irrigation. The fascia was repaired with Vicryl suture. The subcutaneous soft tissues were repaired in layers with Vicryl suture. The skin was approximated with pernio/Dermabond. Sterile dressings were applied. Patient was then awakened, transferred to a bed and taken to recovery in stable condition. Yung CUEVA assisted with the complex procedure.
[2021-09-14 09:34] VITALS: TEMP 97
[2021-09-14] MEDS: HYDROmorphone 0.5 MG/0.5 ML SYRINGE IVP PRN ×2 (09:41→10:29)
--- NOTE | 2021-09-14 09:42 | FL ---
Fluoroscopy HISTORY: Pain 16 seconds fluoroscopy time supplied to the referring clinician. 2 intraoperative C-arm images docum ent the procedure. See dictated report from orthopedic surgery.
[2021-09-14] MEDS ORDERED: KETOROLAC 15 MG/ML 1 ML VIAL IVP ONE (09:43)
[2021-09-14] MEDS ORDERED: HYDROcodone/APAP 7.5-325MG 1 EACH TAB PO ONE (11:04)
[2021-09-14] MEDS ORDERED: LACTATED RINGERS 1,000 ML IV ONE (12:04)
[2021-09-14 12:56] VITALS: BP 119/74; PULSE 65; RESP 20
== END 2021-09-14 13:33 | disposition home health service (06) ==
LOC: OR 06:32
PROVIDERS: ATTEND Orthopaedic Surgery
DX: M16.12 Unilateral primary osteoarthritis, left hip (principal); I10 Essential (primary) hypertension; Z88.8 Allergy status to other drugs, medicaments and biological substances; Z90.49 Acquired absence of other specified parts of digestive tract; Z90.710 Acquired absence of both cervix and uterus; K21.9 Gastro-esophageal reflux disease without esophagitis
CPT/HCPCS: 27130; 97110; 97161; 86900; 86901; 80051; 85025; 85610; 86850; 88300; 87070; 73501; C1776; J2250; J1100; J2710; J0690 ×2; J2405; J2001; J3010; J1885; J0330; J2704; J1170